=== PATIENT | male | born 2005 | race Two or more races ===

== ENCOUNTER 2025-09-07 05:30 | Emergency (ER) | payer SELFPAY ==
[~2025-09-07] VITALS: Ht 172.7 cm; Wt 72.7 kg
[2025-09-07 05:37] VITALS: BP 134/96; PULSE 115; RESP 16; TEMP 98.1; O2SAT 95
== END 2025-09-07 07:21 | disposition left against medical advice (07) ==
LOC: EDBD 05:30 → ER 05:30
DX: F10.90 Alcohol use, unspecified, uncomplicated (principal); Z53.21 Procedure and treatment not carried out due to patient leaving prior to being seen by health care provider